=== PATIENT | female | born 1980 | race American Indian/Alaskan Native ===

== ENCOUNTER 2016-11-17 20:10 | Emergency (ER) | payer SELFPAY ==
[2016-11-17] MEDS ORDERED: BENADRYL ONE (20:19)
[2016-11-17] MEDS ORDERED: PEPCID IV ONE ×2 (20:20→20:22)
[2016-11-17] MEDS ORDERED: ZOFRAN IV ONE (20:22)
[2016-11-17] MEDS ORDERED: BENADRYL IV ONE (20:22)
[2016-11-17] MEDS ORDERED: S2 RACEPINEPHRINE 2.25% IH ONE (20:22)
[2016-11-17] MEDS ORDERED: NITRO-BID 2% TP ONE (20:45)
--- NOTE | 2016-11-17 20:50 | Emergency Department Report ---
HPI - General Chief Complaint: Allergic Reaction Time Seen by Provider: 11/17/16 20:21 - HPI HPI: Room 6 The patient is a 36-year-old female presented with the chief complaint of allergic reaction. The patient states proximate 15 minutes prior to arrival she began feeling flushed and itching all over the scratching throat and feeling as though there is a tickle in her throat. Patient also exhibits a cough. The patient states yesterday she had the same reaction and went to an urgent care facility and was diagnosed with an allergic reaction. Patient is not aware of any new exposures. Patient states she was given Solu-Medrol Benadryl and EpiPen and prednisone yesterday. The patient states today before coming to the ED she accidentally stuck herself in the right thumb with an EpiPen when she attempted to use it. Of note patient had symptoms which included ear pain, rhinorrhea and sneezing and itching eyes associate with cough approximately 10/31/2016. The patient was started on Tessalon Perles . She was asymptomatic until yesterday. Location: [see above] Duration: [see above] Quality: Itching Severity: Moderate Modifying factors: [see above] Context: [see above] Mode of transportation: [not driving] ED Past Medical Hx - Past Medical History Hx Psychiatric Treatment: Yes (depression) - Family History Family history: no significant - Social History Smoking Status: Current Every Day Smoker Substance Use Type: Alcohol (occasional) - Medications Home Medications: Home Medications Medication Instructions Recorded Confirmed Last Taken Type ALBUTEROL Inhaler [Proair] 2 puff IH QID PRN #1 inhalation 11/17/16 Unknown Rx ED Review of Systems ROS: Stated complaint: ALLERGIC REACTION Other details as noted in HPI Comment: All other systems reviewed and negative Constitutional: denies: chills, fever Eyes: denies: eye pain, eye discharge, vision change ENT: throat pain Respiratory: cough Cardiovascular: denies: chest pain, palpitations Endocrine: no symptoms reported Gastrointestinal: nausea, vomiting. denies: abdominal pain, diarrhea Genitourinary: denies: urgency, dysuria, discharge Musculoskeletal: denies: back pain, joint swelling, arthralgia Skin: pruritus Neurological: denies: headache, weakness, paresthesias Psychiatric: denies: anxiety, depression Hematological/Lymphatic: denies: easy bleeding, easy bruising Physical Exam - Physical Exam Vital Signs: Vital Signs 11/17/16 11/17/16 20:33 20:40 Pulse Rate [ 119 H 140 H Posterior Bilateral Throughout] Respiratory 18 18 Rate [Posterior Bilateral Throughout] Physical Exam: GENERAL: The patient is well-developed well-nourished female sitting on stretcher with frequent coughing and holding an emesis basin with yellow vomitus present. [] HEENT: Normocephalic. Atraumatic. Extraocular motions are intact. Patient has moist mucous membranes. Oropharynx clear, uvula midline NECK: Supple. No meningitic signs are noted. There is no stridor CHEST/LUNGS: Clear to auscultation. Frequent coughing HEART/CARDIOVASCULAR: Regular. There is no tachycardia. There is no gallop rub or murmur. ABDOMEN: Abdomen is soft, nontender. Patient has normal bowel sounds. There is no abdominal distention. SKIN: There is no rash. There is no edema. There is no diaphoresis. NEURO: The patient is awake, alert, and oriented. The patient is cooperative. The patient has normal speech MUSCULOSKELETAL: There is no evidence of acute injury. ED Course Vital Signs 11/17/16 11/17/16 20:33 20:40 Pulse Rate [ 119 H 140 H Posterior Bilateral Throughout] Respiratory 18 18 Rate [Posterior Bilateral Throughout] - Reevaluation(s) Reevaluation #1: 11/17/16 22:11 Patient states she feels better at this time. Heart rate 98 ED Medical Decision Making - Lab Data Result diagrams: 11/17/16 21:14 11/17/16 21:14 - Radiology Data Radiology results: image reviewed (lateral soft tissue neck x-ray) interpreted by me: Lateral soft tissue neck x-ray-no prevertebral swelling, no evidence of epiglottitis - Differential Diagnosis acute allergic reaction Critical care attestation.: If time is entered above; I have spent that time in minutes in the direct care of this critically ill patient, excluding procedure time. ED Disposition Clinical Impression: Acute allergic reaction Disposition: DC-01 TO HOME OR SELFCARE Is pt being admited?: No Does the pt Need Aspirin: No Condition: Stable Instructions: Allergies (ED), Anaphylaxis (ED), Food Allergy (ED) Additional Instructions: Return to the emergency department immediately should you develop worsening symptoms, fever, inability to tolerate food or liquid or any other concerns. Prescriptions: ALBUTEROL Inhaler [Proair] 2 puff IH QID PRN #1 inhalation PRN Reason: Shortness Of Breath Referrals: JOSE LUIS LARA MD [Staff Physician] - [place] (Dr. Lara is an machinist. Please follow up with her for further evaluation) KANDIS FROST MD [Staff Physician] - [place] (Dr. Frost is an ear nose and throat doctor (kiln mechanic). Please follow up with her for further evaluation) ARNULFO GRIFFIN MD [Staff Physician] - 3-5 Days (Dr. Griffin is a primary physician. Please follow-up with him to be established as a patient) Time of Disposition: 22:13
[2016-11-17] MEDS ORDERED: NACL 0.9% 1000 ML 1,000 ML IV ONE (21:12)
[2016-11-17 21:23] LABS: Hematocrit 43.6 % (30.3-42.9); Hemoglobin 14.5 gm/dl (10.1-14.3); Mean Corpuscular HGB Conc 33 % (30-34); Mean Corpuscular Hemoglobin 30 pg (28-32); Mean Corpuscular Volume 89 fl (79-97); Platelet Count 324 K/mm3 (140-440); Red Cell Distribution Width 14.8 % (13.2-15.2)
[2016-11-17 21:29] LABS: White Blood Count 20.6 K/mm3 (4.5-11.0)
[2016-11-17 21:53] LABS: Anion Gap 23 mmol/L; Blood Urea Nitrogen 9 mg/dL (7-17); Calcium 9.6 mg/dL (8.4-10.2); Carbon Dioxide 22 mmol/L (22-30); Chloride 102.7 mmol/L (98-107); Creatine Kinase 32 units/L (30-135); Glucose 138 mg/dL (65-100); Potassium 3.7 mmol/L (3.6-5.0); Sodium 144 mmol/L (137-145)
[2016-11-17 21:58] LABS: Creatine Kinase MB < 1.0 ng/mL (0.0-4.0)
[2016-11-17 22:02] LABS: Basophils % (Manual) 0 % (0.0-1.8); Blastocytes % (Manual) 0 %; Eosinophils % (Manual) 0 % (0.0-4.3)
[2016-11-17 22:04] LABS: Anisocytosis 1+; Diff Status Complete
[2016-11-17 22:24] VITALS: BP 131/69
--- NOTE | 2016-11-17 23:06 | XRay Report ---
FINAL REPORT EXAM: XR NECK SOFT TISSUE HISTORY: allergic reaction/coughing TECHNIQUE: Soft tissue neck two views 2 images PRIORS: None. FINDINGS: Visualized portion of the lungs are clear. Prevertebral soft tissues appear within normal limits. Epiglottis appears within normal limits. No acute osseous abnormality is identified. IMPRESSION: 1. Prevertebral soft tissues appear within normal limits.
== END 2016-11-17 22:33 | disposition home or self-care (01) ==
LOC: ED 20:10
DX: T78.40XA Allergy, unspecified, initial encounter (principal); F32.9 Major depressive disorder, single episode, unspecified; F17.200 Nicotine dependence, unspecified, uncomplicated
CPT/HCPCS: 36415; 70360; 80048; 82550; 82553; 84439; 84443; 84484; 85007; 85025; 94640; 96374; 96375; 99284; J1200; J2405; J2930